=== PATIENT | female | born 1950 | race Caucasian/White ===

== ENCOUNTER → 2018-05-01 | Outpatient (CLI) | payer BC ==
--- NOTE | 2018-05-01 14:30 | RAD ---
DATE: 05/01/2018 EXAM: MAMMO TAMARA SCREENING BILATERAL HISTORY: Routine screening COMPARISON: 03/27/2016 This study was interpreted with the benefit of Computerized Aided Detection (CAD). Breast Density: HETERO The breast parenchyma is heterogenously dense, which could reduce sensitivity of mammography. Breast parenchyma level C. FINDINGS: 2-D and 3-D tomosynthesis imaging was performed in CC and MLO projections. The fibroglandular tissues in the anterior aspects of both breasts are heterogeneous in a nodular pattern. No new or enlarging breast densities are seen. No spiculated mass or architectural distortion is evident. Benign type calcifications are present. No suspicious microcalcifications have developed. IMPRESSION: Stable mammograms without evidence of malignancy. BI-RADS CATEGORY: 2 BENIGN FINDING(S) RECOMMENDED FOLLOW-UP: 12M 12 MONTH FOLLOW-UP PQRS compliance statement: Patient information was entered into a reminder system with a target due date for the next mammogram. Mammography is a sensitive method for finding small breast cancers, but it does not detect them all and is not a substitute for careful clinical examination. A negative mammogram does not negate a clinically suspicious finding and should not result in delay in biopsying a clinically suspicious abnormality. "Our facility is accredited by the [employer] Mammography Program."
== END | disposition home or self-care (01) ==
LOC: MAMMO 10:56
PROVIDERS: ATTEND Physician Assistant Medical
DX: Z12.31 Encounter for screening mammogram for malignant neoplasm of breast (principal)
CPT/HCPCS: 77063; 77067

== ENCOUNTER → 2018-05-22 | Outpatient (CLI) | payer BC, MEDICARE ==
[~2018-05-22] MED LIST: ALPR0.25 PO; ASPI81TA50 PO; ATOR10TA PO; ESCITALOPRAM OX10 MG PO; FOLI1TAB35 PO; GABA-586 PO; MELO15TA23 PO; PANT40TA3 PO
--- NOTE | 2018-05-22 17:05 | RAD ---
Examination: Lower Extremity Venous Doppler Ultrasound History: Right lower extremity swelling Comparison: None Procedure: Block scale, color flow 2D and spectal waveform analysis images are obtained with and without compression in the area of the common femoral vein, superficial femoral vein - femoral vein junction, main femoral vein (superficial femoral vein) and popliteal vein. Veins of the proximal calf are also imaged. Findings: There is normal duplex flow, color flow and compressibility of all visualized deep vein segments. No evidence of deep venous thrombus is present. There is echogenicity identified in the greater saphenous vein from the mid thigh down to the proximal calf likely superficial vein thrombosis. Impression: 1. No evidence of deep venous thrombosis. 2. Superficial vein thrombus identified in the greater saphenous vein from the mid thigh level to the proximal calf. Electronically signed by: Dinesh Wells MD (05/22/2018 5:02 PM) [place] [id number]
== END | disposition home or self-care (01) ==
LOC: RAD 15:41
PROVIDERS: ATTEND Physician Assistant Medical
DX: I82.811 Embolism and thrombosis of superficial veins of right lower extremity (principal)
CPT/HCPCS: 93971

== ENCOUNTER 2018-05-28 17:57 | Observation (INO) | payer BC, MEDICARE ==
[~2018-05-28] VITALS: Ht 157.5 cm; Wt 67.1 kg
[2018-05-28] MEDS ORDERED: IV RINGERS SOLUTION,LACTATED 1,000 ML IV SCH (18:03)
--- NOTE | 2018-05-28 18:03 | ED.ADGEN ---
Past History Past Medical History: Anxiety, Arthritis, CAD, CHF, Diabetes, Hypertension, Other Adult General Chief Complaint Chief Complaint ". I ve been having chest pain.... for at least two days... I was here on for a DVT... ".. but they did not find a deep DVT..." HPI HPI Patient is a 68 year old female who presents with above hx with complaints of chest pain, hypertension, anxiety, hypokalemia and diabetes. Patient recent reevaluated for DVT felt to have superficial phlebitis. No deep DVT found. Patient normally follows with Dr. Barney. Patient does relate the chest pain is somewhat pleuritic. Pain is sometimes severe with deep breaths or cough. Patient denies any travel, trauma or changes in meds. No hx of immunosuppression. Review of Systems Review of Systems Constitutional: Denies fever or chills [] Eyes: Denies change in visual acuity, redness, or eye pain [] HENT: Denies nasal congestion or sore throat [] Respiratory: Denies cough or shortness of breath [] Cardiovascular: No additional information not addressed in HPI [] GI: Denies abdominal pain, nausea, vomiting, bloody stools or diarrhea [] : Denies dysuria or hematuria [] Musculoskeletal: Denies back pain or joint pain [] Integument: Denies rash or skin lesions [] Neurologic: Denies headache, focal weakness or sensory changes [] Endocrine: Denies polyuria or polydipsia [] All other systems were reviewed and found to be within normal limits, except as documented in this note. Family History Family History Noncontributory Current Medications Current Medications Current Medications Medications (Trade) Dose Ordered Sig/Ryan Start Time Stop Time Status Last Admin Dose Admin Albuterol/ Ipratropium (Duoneb) 3 ml RTQID 05/28/18 20:00 05/29/18 19:59 05/28/18 20:32 3 ML Enoxaparin Sodium (Lovenox 80mg Syringe) 70 mg 1X ONCE 05/28/18 18:45 05/28/18 18:46 DC 05/28/18 19:20 70 MG Iohexol (Omnipaque 350 Mg/ml) 100 ml 1X ONCE 05/28/18 20:00 05/28/18 20:01 DC 05/28/18 19:55 100 ML Lactated Ringer's 1,000 ml @ 1,000 mls/hr Q1H 05/28/18 18:03 05/28/18 19:02 DC 05/28/18 19:17 1,000 MLS/HR Morphine Sulfate (Morphine 10mg Syringe) 10 mg 1X ONCE 05/28/18 18:30 05/28/18 18:31 DC 05/28/18 19:23 10 MG Ondansetron HCl (Zofran) 4 mg PRN Q4HRS PRN 05/28/18 19:30 05/29/18 19:29 05/28/18 23:48 4 MG Potassium Chloride (KCl Oral Soln) 40 meq 1X ONCE 05/28/18 19:45 05/28/18 19:46 DC 05/28/18 20:17 40 MEQ Allergies Allergies Allergies Coded Allergies Type Severity Reaction Last Updated Verified No Known Drug Allergies 05/28/18 No Physical Exam Physical Exam Constitutional: Anxious distress, non-toxic appearance. [] HENT: Normocephalic, atraumatic, bilateral external ears normal, oropharynx moist, no oral exudates, nose normal. [] Eyes: PERRLA, EOMI, conjunctiva normal, no discharge. [] Neck: Normal range of motion, no tenderness, supple, no stridor. [] Cardiovascular:Heart rate regular rhythm, no murmur []PMI to the left Lungs & Thorax: Bilateral breath sounds equal at apex auscultation [] Abdomen: Bowel sounds normal, soft, no tenderness, no masses, no pulsatile masses. Old surgery scars Skin: Warm, dry, no erythema, no rash. [] Back: No tenderness, no CVA tenderness. [] Extremities: No tenderness, no cyanosis, no clubbing, ROM intact, ankle edema. [ ] Neurologic: Alert and oriented X 3, normal motor function, normal sensory function, no focal deficits noted. [] Psychologic: Affect very anxious, judgement normal, mood normal. [] Current Patient Data Vital Signs Vital Signs Date Time Temp Pulse Resp B/P (MAP) Pulse Ox O2 Delivery O2 Flow Rate FiO2 05/28/18 19:23 16 99 Room Air 05/28/18 17:57 113 Lab Results Laboratory Tests Test 05/28/18 18:07 White Blood Count 9.4 x10^3/uL (4.0-11.0) Red Blood Count 4.61 x10^6/uL (3.50-5.40) Hemoglobin 14.4 g/dL (12.0-15.5) Hematocrit 42.0 % (36.0-47.0) Mean Corpuscular Volume 91 fL (79-100) Mean Corpuscular Hemoglobin 31 pg (25-35) Mean Corpuscular Hemoglobin Concent 34 g/dL (31-37) Red Cell Distribution Width 12.9 % (11.5-14.5) Platelet Count 377 x10^3/uL (140-400) Neutrophils (%) (Auto) 62 % (31-73) Lymphocytes (%) (Auto) 30 % (24-48) Monocytes (%) (Auto) 5 % (0-9) Eosinophils (%) (Auto) 2 % (0-3) Basophils (%) (Auto) 1 % (0-3) Neutrophils # (Auto) 5.8 x10^3uL (1.8-7.7) Lymphocytes # (Auto) 2.8 x10^3/uL (1.0-4.8) Monocytes # (Auto) 0.5 x10^3/uL (0.0-1.1) Eosinophils # (Auto) 0.2 x10^3/uL (0.0-0.7) Basophils # (Auto) 0.1 x10^3/uL (0.0-0.2) Prothrombin Time 10.0 SEC (9.4-11.4) Prothrombin Time INR 1.0 (0.9-1.1) PTT < 21 SEC (23-33) L D-Dimer (Nettie) 2.26 mg/L (0.00-0.50) H Sodium Level 140 mmol/L (136-145) Potassium Level 3.3 mmol/L (3.5-5.1) L Chloride Level 103 mmol/L (98-107) Carbon Dioxide Level 22 mmol/L (21-32) Anion Gap 15 (6-14) H Blood Urea Nitrogen 17 mg/dL (7-20) Creatinine 1.0 mg/dL (0.6-1.0) Estimated GFR (Cockcroft-Gault) 55.5 Glucose Level 161 mg/dL (70-99) H Calcium Level 10.2 mg/dL (8.5-10.1) H Magnesium Level 1.7 mg/dL (1.8-2.4) L Total Bilirubin 0.6 mg/dL (0.2-1.0) Direct Bilirubin 0.1 mg/dL (0.0-0.2) Aspartate Amino Transferase (AST) 18 U/L (15-37) Alanine Aminotransferase (ALT) 21 U/L (14-59) Alkaline Phosphatase 71 U/L (46-116) Creatine Kinase 99 U/L (26-192) Troponin I Quantitative < 0.017 ng/mL (0-0.055) AS-Vam-U-Type Natriuretic Peptide 15 pg/mL (0-124) Total Protein 7.7 g/dL (6.4-8.2) Albumin 3.7 g/dL (3.4-5.0) Lipase 235 U/L (73-393) EKG EKG My interpretation EKG shows a sinus rhythm at 79 bpm. No acute morphology. There is some baseline artifact[] Radiology/Procedures Radiology/Procedures My interpretation of chest x-ray shows no large pleural or pulmonary consolidations. Some basilar atelectasis. No free air under the diaphragm. Degenerative joint changes. Course & Med Decision Making Course & Med Decision Making Pertinent Labs and Imaging studies reviewed. (See chart for details) Heart score= [address] Chau- [] Final Impression Final Impression 1. Chest Pain[] 2. HTN 3. Anxiety 4. Hypokalemia 3.3 5. DM 161 Dragon Disclaimer Dragon Disclaimer This electronic medical record was generated, in whole or in part, using a voice recognition dictation system. Dragon Disclaimer This chart was dictated in whole or in part using Voice Recognition software in a busy, high-work load, and often noisy Emergency Department environment. It may contain unintended and wholly unrecognized errors or omissions. Dragon Disclaimer This chart was dictated in whole or in part using Voice Recognition software in a busy, high-work load, and often noisy Emergency Department environment. It may contain unintended and wholly unrecognized errors or omissions. Discharge Summary Visit Information Final Diagnosis Problems Medical Problems: (1) Chest pain Status: Acute Brief Hospital Course Allergies Allergies Coded Allergies Type Severity Reaction Last Updated Verified No Known Drug Allergies 05/28/18 No Vital Signs Vital Signs Date Time Temp Pulse Resp B/P (MAP) Pulse Ox O2 Delivery O2 Flow Rate FiO2 05/28/18 19:23 16 99 Room Air 05/28/18 17:57 113 Lab Results Laboratory Tests Test 05/28/18 18:07 White Blood Count 9.4 x10^3/uL (4.0-11.0) Red Blood Count 4.61 x10^6/uL (3.50-5.40) Hemoglobin 14.4 g/dL (12.0-15.5) Hematocrit 42.0 % (36.0-47.0) Mean Corpuscular Volume 91 fL (79-100) Mean Corpuscular Hemoglobin 31 pg (25-35) Mean Corpuscular Hemoglobin Concent 34 g/dL (31-37) Red Cell Distribution Width 12.9 % (11.5-14.5) Platelet Count 377 x10^3/uL (140-400) Neutrophils (%) (Auto) 62 % (31-73) Lymphocytes (%) (Auto) 30 % (24-48) Monocytes (%) (Auto) 5 % (0-9) Eosinophils (%) (Auto) 2 % (0-3) Basophils (%) (Auto) 1 % (0-3) Neutrophils # (Auto) 5.8 x10^3uL (1.8-7.7) Lymphocytes # (Auto) 2.8 x10^3/uL (1.0-4.8) Monocytes # (Auto) 0.5 x10^3/uL (0.0-1.1) Eosinophils # (Auto) 0.2 x10^3/uL (0.0-0.7) Basophils # (Auto) 0.1 x10^3/uL (0.0-0.2) Prothrombin Time 10.0 SEC (9.4-11.4) Prothromb Time International Ratio 1.0 (0.9-1.1) Activated Partial Thromboplast Time < 21 SEC (23-33) D-Dimer (Nettie) 2.26 mg/L (0.00-0.50) Sodium Level 140 mmol/L (136-145) Potassium Level 3.3 mmol/L (3.5-5.1) Chloride Level 103 mmol/L (98-107) Carbon Dioxide Level 22 mmol/L (21-32) Anion Gap 15 (6-14) Blood Urea Nitrogen 17 mg/dL (7-20) Creatinine 1.0 mg/dL (0.6-1.0) Estimated GFR (Cockcroft-Gault) 55.5 Glucose Level 161 mg/dL (70-99) Calcium Level 10.2 mg/dL (8.5-10.1) Magnesium Level 1.7 mg/dL (1.8-2.4) Total Bilirubin 0.6 mg/dL (0.2-1.0) Direct Bilirubin 0.1 mg/dL (0.0-0.2) Aspartate Amino Transf (AST/SGOT) 18 U/L (15-37) Alanine Aminotransferase (ALT/SGPT) 21 U/L (14-59) Alkaline Phosphatase 71 U/L (46-116) Creatine Kinase 99 U/L (26-192) Troponin I Quantitative < 0.017 ng/mL (0-0.055) AD-Vsc-T-Type Natriuretic Peptide 15 pg/mL (0-124) Total Protein 7.7 g/dL (6.4-8.2) Albumin 3.7 g/dL (3.4-5.0) Lipase 235 U/L (73-393) Brief Hospital Course Ms. Wong is a 68 old female who presented with CP. Admit to Dr. Chau Discharge Information Condition at Discharge: Improved, Stable Dischare Medications Current Medications Lactated Ringer's 1,000 ml @ 1,000 mls/hr Q1H IV Last administered on at 19:17; Admin Dose 1,000 MLS/HR; Start 05/28/18 at 18:03; Stop 05/28/18 at 19:02; Status DC Enoxaparin Sodium (Lovenox 80mg Syringe) 70 mg 1X ONCE SQ Last administered on 05/28/18at 19:20; Admin Dose 70 MG; Start 05/28/18 at 18:45; Stop 05/28/18 at 18:46; Status DC Morphine Sulfate (Morphine 10mg Syringe) 10 mg 1X ONCE SQ Last administered on 05/28/18at 19:23; Admin Dose 10 MG; Start 05/28/18 at 18:30; Stop 05/28/18 at 18:31; Status DC Iohexol (Omnipaque 350 Mg/ml) 100 ml 1X ONCE IV Last administered on at 19:55; Admin Dose 100 ML; Start 05/28/18 at 20:00; Stop 05/28/18 at 20:01; Status DC Ondansetron HCl (Zofran) 4 mg PRN Q4HRS PRN IV NAUSEA/VOMITING Last administered on 05/28/18at 23:48; Admin Dose 4 MG; Start 05/28/18 at 19:30; Stop 05/29/18 at 19:29 Albuterol/ Ipratropium (Duoneb) 3 ml RTQID NEB Last administered on 05/28/18at 20:32; Admin Dose 3 ML; Start 05/28/18 at 20:00; Stop 05/29/18 at 19:59 Potassium Chloride (KCl Oral Soln) 40 meq 1X ONCE PO Last administered on 05/28at 20:17; Admin Dose 40 MEQ; Start 05/28/18 at 19:45; Stop 05/28/18 at 19:46 ; Status DC Active Scripts Active Discharge Summary Visit Information Final Diagnosis Problems Medical Problems: (1) Chest pain Status: Acute Brief Hospital Course Allergies Allergies Coded Allergies Type Severity Reaction Last Updated Verified No Known Drug Allergies 05/28/18 No Vital Signs Vital Signs Date Time Temp Pulse Resp B/P (MAP) Pulse Ox O2 Delivery O2 Flow Rate FiO2 05/28/18 19:23 16 99 Room Air 05/28/18 17:57 113 Lab Results Laboratory Tests Test 05/28/18 18:07 White Blood Count 9.4 x10^3/uL (4.0-11.0) Red Blood Count 4.61 x10^6/uL (3.50-5.40) Hemoglobin 14.4 g/dL (12.0-15.5) Hematocrit 42.0 % (36.0-47.0) Mean Corpuscular Volume 91 fL (79-100) Mean Corpuscular Hemoglobin 31 pg (25-35) Mean Corpuscular Hemoglobin Concent 34 g/dL (31-37) Red Cell Distribution Width 12.9 % (11.5-14.5) Platelet Count 377 x10^3/uL (140-400) Neutrophils (%) (Auto) 62 % (31-73) Lymphocytes (%) (Auto) 30 % (24-48) Monocytes (%) (Auto) 5 % (0-9) Eosinophils (%) (Auto) 2 % (0-3) Basophils (%) (Auto) 1 % (0-3) Neutrophils # (Auto) 5.8 x10^3uL (1.8-7.7) Lymphocytes # (Auto) 2.8 x10^3/uL (1.0-4.8) Monocytes # (Auto) 0.5 x10^3/uL (0.0-1.1) Eosinophils # (Auto) 0.2 x10^3/uL (0.0-0.7) Basophils # (Auto) 0.1 x10^3/uL (0.0-0.2) Prothrombin Time 10.0 SEC (9.4-11.4) Prothromb Time International Ratio 1.0 (0.9-1.1) Activated Partial Thromboplast Time < 21 SEC (23-33) D-Dimer (Nettie) 2.26 mg/L (0.00-0.50) Sodium Level 140 mmol/L (136-145) Potassium Level 3.3 mmol/L (3.5-5.1) Chloride Level 103 mmol/L (98-107) Carbon Dioxide Level 22 mmol/L (21-32) Anion Gap 15 (6-14) Blood Urea Nitrogen 17 mg/dL (7-20) Creatinine 1.0 mg/dL (0.6-1.0) Estimated GFR (Cockcroft-Gault) 55.5 Glucose Level 161 mg/dL (70-99) Calcium Level 10.2 mg/dL (8.5-10.1) Magnesium Level 1.7 mg/dL (1.8-2.4) Total Bilirubin 0.6 mg/dL (0.2-1.0) Direct Bilirubin 0.1 mg/dL (0.0-0.2) Aspartate Amino Transf (AST/SGOT) 18 U/L (15-37) Alanine Aminotransferase (ALT/SGPT) 21 U/L (14-59) Alkaline Phosphatase 71 U/L (46-116) Creatine Kinase 99 U/L (26-192) Troponin I Quantitative < 0.017 ng/mL (0-0.055) NM-Siv-Z-Type Natriuretic Peptide 15 pg/mL (0-124) Total Protein 7.7 g/dL (6.4-8.2) Albumin 3.7 g/dL (3.4-5.0) Lipase 235 U/L (73-393) Brief Hospital Course Ms. Wong is a 68 old [sex] who presented with [ ] Discharge Information Dischare Medications Current Medications Lactated Ringer's 1,000 ml @ 1,000 mls/hr Q1H IV Last administered on at 19:17; Admin Dose 1,000 MLS/HR; Start 05/28/18 at 18:03; Stop 05/28/18 at 19:02; Status DC Enoxaparin Sodium (Lovenox 80mg Syringe) 70 mg 1X ONCE SQ Last administered on 05/28/18at 19:20; Admin Dose 70 MG; Start 05/28/18 at 18:45; Stop 05/28/18 at 18:46; Status DC Morphine Sulfate (Morphine 10mg Syringe) 10 mg 1X ONCE SQ Last administered on 05/28/18at 19:23; Admin Dose 10 MG; Start 05/28/18 at 18:30; Stop 05/28/18 at 18:31; Status DC Iohexol (Omnipaque 350 Mg/ml) 100 ml 1X ONCE IV Last administered on at 19:55; Admin Dose 100 ML; Start 05/28/18 at 20:00; Stop 05/28/18 at 20:01; Status DC Ondansetron HCl (Zofran) 4 mg PRN Q4HRS PRN IV NAUSEA/VOMITING Last administered on 05/28/18at 23:48; Admin Dose 4 MG; Start 05/28/18 at 19:30; Stop 05/29/18 at 19:29 Albuterol/ Ipratropium (Duoneb) 3 ml RTQID NEB Last administered on 05/28/18at 20:32; Admin Dose 3 ML; Start 05/28/18 at 20:00; Stop 05/29/18 at 19:59 Potassium Chloride (KCl Oral Soln) 40 meq 1X ONCE PO Last administered on 05/28at 20:17; Admin Dose 40 MEQ; Start 05/28/18 at 19:45; Stop 05/28/18 at 19:46 ; Status DC Active Scripts Active JAIRON BLANCO MD May 28, 2018 18:03
[2018-05-28 18:24] LABS: BASO # 0.1 x10^3/uL (0.0-0.2); BASO % 1 % (0-3); EOS # 0.2 x10^3/uL (0.0-0.7); EOS % 2 % (0-3); HEMOGLOBIN 14.4 g/dL (12.0-15.5); LYMPH # 2.8 x10^3/uL (1.0-4.8); LYMPH % 30 % (24-48); MEAN CORPUSCULAR HEMOGLOBIN 31 pg (25-35); MEAN CORPUSCULAR HGB CONC 34 g/dL (31-37); MEAN CORPUSCULAR VOLUME 91 fL (79-100); MONO # 0.5 x10^3/uL (0.0-1.1); MONO % 5 % (0-9); NEUT # 5.8 x10^3uL (1.8-7.7); NEUT % 62 % (31-73); PLATELET COUNT 377 x10^3/uL (140-400); RED BLOOD COUNT 4.61 x10^6/uL (3.50-5.40); RED CELL DISTRIBUTION WIDTH 12.9 % (11.5-14.5); WHITE BLOOD COUNT 9.4 x10^3/uL (4.0-11.0)
[2018-05-28] MEDS ORDERED: MORPHINE SULFATE 10 MG/ML SYRINGE. SQ ONE (18:30)
[2018-05-28 18:42] LABS: ALBUMIN 3.7 g/dL (3.4-5.0); CALCIUM 10.2 mg/dL (8.5-10.1); DIRECT BILIRUBIN 0.1 mg/dL (0.0-0.2); GFR 55.5; MAGNESIUM 1.7 mg/dL (1.8-2.4); POTASSIUM 3.3 mmol/L (3.5-5.1); TOTAL BILIRUBIN 0.6 mg/dL (0.2-1.0); TOTAL PROTEIN 7.7 g/dL (6.4-8.2)
[2018-05-28] MEDS ORDERED: ENOXAPARIN ** NOTE DOSE ** SYRINGE SQ ONE (18:45)
[2018-05-28] MEDS ORDERED: POTASSIUM CHLORIDE 20 MEQ/15 ML ORAL LIQUID. PO ONE (19:45)
[2018-05-28] MEDS ORDERED: IOHEXOL 350 MG/ML 100 ML VIAL. IV ONE (20:00)
[2018-05-28] MEDS: ONDANSETRON PF 4 MG/2 ML VIAL. IV PRN ×2 (20:18→23:48)
[2018-05-28] MEDS: IPRATRPIUM/ALBUTEROL 0.5/2.5MG 3 ML NEBU. NEB SCH (20:32)
--- NOTE | 2018-05-28 21:20 | RAD ---
PQRS Compliance Statement: One or more of the following individualized dose reduction techniques were utilized for this examination: 1. Automated exposure control 2. Adjustment of the mA and/or kV according to patient size 3. Use of iterative reconstruction technique CT angiography chest with contrast 05/28/2018 7:57 PM INDICATION: Chest pain COMPARISON: None available TECHNIQUE: Axial CT images of the chest were obtained after the intravenous administration of nonionic contrast. Coronal and sagittal reformats are provided. Maximum intensity projection images of the thoracic vasculature are provided. FINDINGS: The thyroid gland is normal in appearance. There are no pathologically enlarged axillary, mediastinal or hilar lymph nodes. The heart size is within normal limits. No significant pericardial effusion. Thoracic aorta is normal in course and caliber. There is adequate opacification of the pulmonary arterial system. There there are no filling defects within the pulmonary arterial system to suggest acute or chronic pulmonary embolus. There are no suspicious solid noncalcified pulmonary nodules. There are no pulmonary infiltrates. There are no pleural effusions. No pulmonary vascular congestion or pneumothorax. There is a 3 mm nonobstructing calculus in the superior pole the left kidney. Calcified gallstones are present. No suspicious osseous lesions are visualized. IMPRESSION: 1. There is no evidence for acute or chronic pulmonary embolism. 2. 3 mm nonobstructing calculus in the superior pole the left kidney. No hydronephrosis. 3. Cholelithiasis. Electronically signed by: Angela Hernandez MD (05/28/2018 9:17 PM) [facility]
--- NOTE | 2018-05-28 21:50 | RAD ---
Chest radiograph 05/28/2018 6:28 PM INDICATION: Chest pain, shortness of breath COMPARISON: Chest radiograph January 21, 2013 TECHNIQUE: Frontal and lateral views of the chest are provided. FINDINGS: The cardiomediastinal silhouette is within normal limits. There are no pleural effusions. There is no pulmonary vascular congestion. There is no pneumothorax. The lungs are clear. No significant osseous abnormality is identified. Mild degenerative changes of the thoracic spine. IMPRESSION: No acute cardiopulmonary process. Electronically signed by: Angela Hernandez MD (05/28/2018 9:48 PM) [facility]
[2018-05-28 22:15] VITALS: BP 111/75
[2018-05-29] MEDS ORDERED: ATOR10TA PO (00:46)
[2018-05-29] MEDS ORDERED: MELO15TA23 PO (00:46)
[2018-05-29] MEDS ORDERED: ASPI81TA50 PO (00:46)
[2018-05-29] MEDS ORDERED: FOLI1TAB35 PO (00:46)
[2018-05-29] MEDS ORDERED: GABA-586 PO (00:46)
[2018-05-29 01:11] LABS: BARBITURATES NEG (NEG); BENZODIAZEPINES NEG (NEG); CANNABINOIDS NEG (NEG); COCAINE NEG (NEG); METHADONE NEG (NEG); OPIATES POS (NEG); PHENCYCLIDINE NEG (NEG)
[2018-05-29 01:30] LABS: BILIRUBIN,URINE NEG (NEG); CLARITY,URINE CLEAR; COLOR,URINE YELLOW; GLUCOSE,URINE NEG (NEG); NITRITE,URINE NEG (NEG); UROBILINOGEN,URINE 0.2 mg/dL (0.2 mg/dL)
[2018-05-29 01:31] LABS: BACTERIA,URINE 0 /HPF (0-FEW); RBC,URINE 0 /HPF (0-2); SQUAMOUS EPITHELIAL CELL,UR OCC /LPF; WBC,URINE RARE /HPF (0-4)
[2018-05-29 01:37] LABS: AMPHETAMINE/METHAMPHETAMINE NEG (NEG)
[2018-05-29 04:36] VITALS: BP 99/64
[2018-05-29] MEDS: IPRATRPIUM/ALBUTEROL 0.5/2.5MG 3 ML NEBU. NEB SCH ×2 (05:27→09:45)
[2018-05-29 06:29] VITALS: BP 114/69
[2018-05-29 06:38] LABS: BASO % 0 % (0-3); EOS % 0 % (0-3); HEMATOCRIT 39.9 % (36.0-47.0); HEMOGLOBIN 13.3 g/dL (12.0-15.5); LYMPH # 1.3 x10^3/uL (1.0-4.8); LYMPH % 15 % (24-48); MEAN CORPUSCULAR HEMOGLOBIN 31 pg (25-35); MEAN CORPUSCULAR HGB CONC 34 g/dL (31-37); MEAN CORPUSCULAR VOLUME 92 fL (79-100); MONO # 0.6 x10^3/uL (0.0-1.1); MONO % 6 % (0-9); NEUT # 7.3 x10^3uL (1.8-7.7); NEUT % 79 % (31-73); PLATELET COUNT 361 x10^3/uL (140-400); RED BLOOD COUNT 4.36 x10^6/uL (3.50-5.40); RED CELL DISTRIBUTION WIDTH 12.9 % (11.5-14.5); WHITE BLOOD COUNT 9.3 x10^3/uL (4.0-11.0)
[2018-05-29 06:50] LABS: CALCIUM 8.9 mg/dL (8.5-10.1); CREATININE 0.8 mg/dL (0.6-1.0); GFR 71.8
[2018-05-29] MEDS ORDERED: ASPIRIN ENTERIC COATED 81 MG TABLET.DR. PO SCH (08:00)
[2018-05-29] MEDS ORDERED: PANTOPRAZOLE 40 MG TABLET. PO SCH (08:00)
[2018-05-29] MEDS ORDERED: MELOXICAM 15 MG TABLET. PO SCH (09:00)
[2018-05-29] MEDS ORDERED: MULTIVITAMIN with MINERAL TABLET. PO SCH (09:00)
[2018-05-29] MEDS: GABAPENTIN 300 MG CAPSULE. PO SCH ×3 (09:17→14:42)
--- NOTE | 2018-05-29 10:16 | PDOC2 ---
CONSULT Date of Admission DATE: 05/29/18 TIME: 10:16 Reason for Consult: cp Problem List Problems Medical Problems: (1) Chest pain Status: Acute History of Present Illness Ms Wong is a 68 year old female who was recently diagnosed with phlebitis and a lower extremity superficial clot. She reports yesterday she began to have sharp pains beneath her left breast that would last only a second or two and resolve spontaneously. She reports the pain was usually exertional and she had been having dyspnea on exertion for about 3 months. She reports episodes of heart racing. Yesterday she reports after having pain she became frightened and came to ED . She reports shortness of breath, lightheadedness and her hands were numb and tingling. She says she has family history of heart problems and was afraid she might . She is currently resting quietly but appears very nervous when talking. She denies current symptoms. She reports varicose veins and needing to see a vein specialist. She complains of neuropathy in both feet. She complains of recent low back discomfort. Past Medical History She reports history of hypertension and hyperlipidemia, anxiety and neuropathy. She denies any personal history of CAD, CHF or diabetes but does state many family members have all three. She denies any significant history of lung disese. she reports GERD but denies any ulcers. She denies any kidney problems , She denies any urinary tract disorders, She reports history of arthritis. She denies renal or hepatic disease. She does report history of basal cell carcinoma with removal on her ear. She reports history of anxiety and depression. She has history of UTIs and bladder prolapse. Past Surgical History basal cell carcinoma removal Family History cad, CHF, diabetes, hypertension, cancer Social History non smoker, no significant ETOH, no illicit drugs Current Medications Current Medications Lactated Ringer's 1,000 ml @ 1,000 mls/hr Q1H IV Last administered on at 19:17; Start 05/28/18 at 18:03; Stop 05/28/18 at 19:02; Status DC Enoxaparin Sodium (Lovenox 80mg Syringe) 70 mg 1X ONCE SQ Last administered on 05/28/18at 19:20; Start 05/28/18 at 18:45; Stop 05/28/18 at 18:46; Status DC Morphine Sulfate (Morphine 10mg Syringe) 10 mg 1X ONCE SQ Last administered on 05/28/18 19:23; Start 05/28/18 at 18:30; Stop 05/28/18 at 18:31; Status DC Iohexol (Omnipaque 350 Mg/ml) 100 ml 1X ONCE IV Last administered on at 19:55; Start 05/28/18 at 20:00; Stop 05/28/18 at 20:01; Status DC Ondansetron HCl (Zofran) 4 mg PRN Q4HRS PRN IV NAUSEA/VOMITING Last administered on 05/28/18 23:48; Start 05/28/18 at 19:30; Stop 05/29/18 at 19:29 Albuterol/ Ipratropium (Duoneb) 3 ml RTQID NEB Last administered on 05/29/18 05:27; Start 05/28/18 at 20:00; Stop 05/29/18 at 19:59 Potassium Chloride (KCl Oral Soln) 40 meq 1X ONCE PO Last administered on 05/28 20:17; Start 05/28/18 at 19:45; Stop 05/28/18 at 19:46; Status DC Lorazepam (Ativan) 2 mg 1X ONCE IV Last administered on 05/28/18 21:26; Start 05/28/18 at 21:30; Stop 05/28/18 at 21:31; Status DC Gabapentin (Neurontin) 300 mg TID PO ; Start 05/29/18 at 09:00 Aspirin (Aspirin Enteric Coated) 81 mg DAILYWBKFT PO Last administered on at 09:17; Start 05/29/18 at 08:00 Atorvastatin Calcium (Lipitor) 10 mg QHS PO ; Start 05/29/18 at 21:00 Multivitamins/ Calcium (Thera-M Plus) 1 tab DAILY PO Last administered on at 09:18; Start 05/29/18 at 09:00 Meloxicam (Mobic) 15 mg DAILY PO ; Start 05/29/18 at 09:00 Pantoprazole Sodium (Protonix) 40 mg DAILYAC PO Last administered on 05/29/18at 09:17; Start 05/29/18 at 08:00 Active Scripts Active Reported Aspir-Low (Aspirin) 81 Mg Tablet.dr 81 Mg PO DAILY One Daily For Women Tablet (Folic Acid/Mv,Fe,Other Min) 1 Each Tablet 1 Each PO DAILY Gabapentin (Gabapentin) 300 Mg Capsule 300 Mg PO TID Meloxicam 15 Mg Tablet 15 Mg PO DAILY Lipitor (Atorvastatin Calcium) 10 Mg Tablet 10 Mg PO QHS Allergies: Coded Allergies: No Known Drug Allergies (Unverified , 05/28/18) Review of System as per HPI General: Alert, Oriented X3, Cooperative, Other (very anxious) HEENT: Atraumatic Lungs: Clear to auscultation Heart: Normal S1, Normal S2, Other (no significant murmurs, no gallops, clicks or rubs) Abdomen: Normal bowel sounds, No tenderness Extremities: No cyanosis, No edema, Normal pulses Neuro: Normal speech, Strength at 5/5 X4 ext Psych/Mental Status: Other (very anxious ) VITALS Vital Signs Date Time Temp Pulse Resp B/P (MAP) Pulse Ox O2 Delivery O2 Flow Rate FiO2 05/29/18 06:29 99 114/69 (84) 05/29/18 05:29 98 Room Air 05/29/18 04:36 98.1 18 Labs Laboratory Tests Test 05/28/18 18:07 05/28/18 22:20 05/29/18 00:01 05/29/18 06:12 White Blood Count 9.4 x10^3/uL (4.0-11.0) 9.3 x10^3/uL (4.0-11.0) Red Blood Count 4.61 x10^6/uL (3.50-5.40) 4.36 x10^6/uL (3.50-5.40) Hemoglobin 14.4 g/dL (12.0-15.5) 13.3 g/dL (12.0-15.5) Hematocrit 42.0 % (36.0-47.0) 39.9 % (36.0-47.0) Mean Corpuscular Volume 91 fL (79-100) 92 fL (79-100) Mean Corpuscular Hemoglobin 31 pg (25-35) 31 pg (25-35) Mean Corpuscular Hemoglobin Concent 34 g/dL (31-37) 34 g/dL (31-37) Red Cell Distribution Width 12.9 % (11.5-14.5) 12.9 % (11.5-14.5) Platelet Count 377 x10^3/uL (140-400) 361 x10^3/uL (140-400) Neutrophils (%) (Auto) 62 % (31-73) 79 % (31-73) Lymphocytes (%) (Auto) 30 % (24-48) 15 % (24-48) Monocytes (%) (Auto) 5 % (0-9) 6 % (0-9) Eosinophils (%) (Auto) 2 % (0-3) 0 % (0-3) Basophils (%) (Auto) 1 % (0-3) 0 % (0-3) Neutrophils # (Auto) 5.8 x10^3uL (1.8-7.7) 7.3 x10^3uL (1.8-7.7) Lymphocytes # (Auto) 2.8 x10^3/uL (1.0-4.8) 1.3 x10^3/uL (1.0-4.8) Monocytes # (Auto) 0.5 x10^3/uL (0.0-1.1) 0.6 x10^3/uL (0.0-1.1) Eosinophils # (Auto) 0.2 x10^3/uL (0.0-0.7) 0.0 x10^3/uL (0.0-0.7) Basophils # (Auto) 0.1 x10^3/uL (0.0-0.2) 0.0 x10^3/uL (0.0-0.2) Prothrombin Time 10.0 SEC (9.4-11.4) Prothromb Time International Ratio 1.0 (0.9-1.1) Activated Partial Thromboplast Time < 21 SEC (23-33) D-Dimer (Nettie) 2.26 mg/L (0.00-0.50) Sodium Level 140 mmol/L (136-145) 145 mmol/L (136-145) Potassium Level 3.3 mmol/L (3.5-5.1) 4.0 mmol/L (3.5-5.1) Chloride Level 103 mmol/L (98-107) 108 mmol/L (98-107) Carbon Dioxide Level 22 mmol/L (21-32) 25 mmol/L (21-32) Anion Gap 15 (6-14) 12 (6-14) Blood Urea Nitrogen 17 mg/dL (7-20) 12 mg/dL (7-20) Creatinine 1.0 mg/dL (0.6-1.0) 0.8 mg/dL (0.6-1.0) Estimated GFR (Cockcroft-Gault) 55.5 71.8 Glucose Level 161 mg/dL (70-99) 122 mg/dL (70-99) Calcium Level 10.2 mg/dL (8.5-10.1) 8.9 mg/dL (8.5-10.1) Magnesium Level 1.7 mg/dL (1.8-2.4) Total Bilirubin 0.6 mg/dL (0.2-1.0) Direct Bilirubin 0.1 mg/dL (0.0-0.2) Aspartate Amino Transf (AST/SGOT) 18 U/L (15-37) Alanine Aminotransferase (ALT/SGPT) 21 U/L (14-59) Alkaline Phosphatase 71 U/L (46-116) Creatine Kinase 99 U/L (26-192) Troponin I Quantitative < 0.017 ng/mL (0-0.055) < 0.017 ng/mL (0-0.055) < 0.017 ng/mL (0-0.055) IY-Psh-V-Type Natriuretic Peptide 15 pg/mL (0-124) Total Protein 7.7 g/dL (6.4-8.2) Albumin 3.7 g/dL (3.4-5.0) Lipase 235 U/L (73-393) Urine Collection Type Unknown Urine Color Yellow Urine Clarity Clear Urine pH 7.0 Urine Specific [place] 1.010 Urine Protein Neg (NEG-TRACE) Urine Glucose (UA) Neg mg/dL (NEG) Urine Ketones (Stick) 40 mg/dL (NEG) Urine Blood Neg (NEG) Urine Nitrite Neg (NEG) Urine Bilirubin Neg (NEG) Urine Urobilinogen Dipstick 0.2 mg/dL (0.2 mg/dL) Urine Leukocyte Esterase Neg (NEG) Urine RBC 0 /HPF (0-2) Urine WBC Rare /HPF (0-4) Urine Squamous Epithelial Cells Occ /LPF Urine Bacteria 0 /HPF (0-FEW) Urine Opiates Screen Pos (NEG) Urine Methadone Screen Neg (NEG) Urine Barbiturates Neg (NEG) Urine Phencyclidine Screen Neg (NEG) Urine Amphetamine/Methamphetamine Neg (NEG) Urine Benzodiazepines Screen Neg (NEG) Urine Cocaine Screen Neg (NEG) Urine Cannabinoids Screen Neg (NEG) Urine Ethyl Alcohol Neg (NEG) Images CXR - IMPRESSION: No acute cardiopulmonary process. CTA - IMPRESSION: 1. There is no evidence for acute or chronic pulmonary embolism. 2. 3 mm nonobstructing calculus in the superior pole the left kidney. No hydronephrosis. 3. Cholelithiasis. Assessment/Plan 1. Chest pain atypical- ID ruled out. no acute abn on ekg. Check lipids, start aspirin, No beta jay due to borderline hypotension. Check echo and if no acute abn could go home from CV stand point. Consider outpatient MPI. 2. dyspnea - no signs of heart failure 3. hypertension - well controlled. Continue home meds. 4. hyperlipidemia - check lipids 5. superficial lower ext clot - per PCP. 6. anxiety - per pcp AZAEL SORIA APRN May 29, 2018 10:16
[2018-05-29 10:36] VITALS: BP 107/72
[2018-05-29] MEDS ORDERED: IPRATRPIUM/ALBUTEROL 0.5/2.5MG 3 ML NEBU. NEB PRN (13:45)
[2018-05-29 13:49] LABS: THYROID STIM HORMONE (TSH) 3.949 uIU/mL (0.358-3.740)
--- NOTE | 2018-05-29 14:16 | CARD ---
MR#: [id number] Date of Study: 05/29/2018 Ordering Physician: AZAEL SORIA, Referring Physician: BOONE ONOFRE, Tech: Erin Nye APPROVED REPORT EXAM: Two-dimensional and M-mode echocardiogram with Doppler and color Doppler. Other Information Quality : Average INDICATION CAD Chest Pain RISK FACTORS Hypertension Hyperlipidemia 2D DIMENSIONS RVDd2.0 (2.9-3.5cm)Left Atrium(2D)3.6 (1.6-4.0cm) IVSd0.9 (0.7-1.1cm)Aortic Root(2D)2.3 (2.0-3.7cm) LVDd4.0 (3.9-5.9cm)LVOT Diameter2.0 (1.8-2.4cm) PWd0.8 (0.7-1.1cm)LVDs2.5 (2.5-4.0cm) FS (%) 38.9 %SV49.8 ml LVEF(%)69.8 (>50%) Aortic Valve AoV Peak Henrry.183.4cm/sAoV VTI33.4cm AO Peak GR.13.5mmHgLVOT Peak Henrry.191.1cm/s LVOT VTI 36.13cmAO Mean GR.7mmHg CHARLY (VMAX)3.65yn2ATB (VTI)3.54cm2 Mitral Valve MV E Djisbhny04.3cm/sMV DECEL RSWT310ls MV A Jdgbvqvy85.0cm/sE/A Ratio1.1 Pulmonary Valve PV Peak Pdtoqhqj921.5cm/sPV Peak Grad.6mmHg Tricuspid Valve TR P. Onmphlqf290kx/sRAP QXOIFOWB9eeRy TR Peak Gr.39mmHg Pulmonary Vein S1 Zzvearmy49.4cm/sD2 Uzkfpwbd97.2cm/s LEFT VENTRICLE The left ventricle is normal size. There is normal left ventricular wall thickness. The left ventricu lar systolic function is normal and the ejection fraction is within normal range. The Ejection Fracti on is >55%. There is normal LV segmental wall motion. Transmitral Doppler flow pattern is Grade II-ps eudonormal filling dynamics. RIGHT VENTRICLE The right ventricle is normal size. There is normal right ventricular wall thickness. The right ventr icular systolic function is normal. ATRIA The left atrium size is normal. The right atrium size is normal. The interatrial septum is intact wit h no evidence for an atrial septal defect or patent foramen ovale as noted on 2-D or Doppler imaging. AORTIC VALVE The aortic valve is normal in structure and function. Doppler and Color Flow revealed no significant aortic regurgitation. There is no significant aortic valvular stenosis. MITRAL VALVE The mitral valve is normal in structure and function. There is no evidence of mitral valve prolapse. There is no mitral valve stenosis. Doppler and Color-flow revealed trace mitral regurgitation. TRICUSPID VALVE The tricuspid valve is not well visualized. Doppler and Color Flow revealed trace tricuspid regurgita tion. There is no tricuspid valve stenosis. PULMONIC VALVE The pulmonary valve is normal in structure and function. Doppler and Color Flow revealed no pulmonic valvular regurgitation. GREAT VESSELS The aortic root is normal in size. The IVC is normal in size and collapses >50% with inspiration. PERICARDIAL EFFUSION There is no pleural effusion. There is no evidence of significant pericardial effusion. Critical Notification Critical Value: No <Conclusion> The left ventricular systolic function is normal and the ejection fraction is within normal range. Th e Ejection Fraction is >55%. There is normal LV segmental wall motion. Signed by : Everardo Angeles, Electronically Approved : 05/29/2018 14:15:30
[2018-05-29 16:04] VITALS: BP 106/71
[2018-05-29] MEDS ORDERED: ALPR0.25 PO (16:42)
[2018-05-29] MEDS ORDERED: ESCITALOPRAM OX10 MG PO (16:42)
[2018-05-29] MEDS ORDERED: PANT40TA3 PO (16:42)
--- NOTE | 2018-05-29 17:30 | HP ---
ADMIT DATE: 05/28/2018 HISTORY OF PRESENT ILLNESS: The patient is a 68-year-old female patient who was recently diagnosed with a superficial thrombophlebitis of her right lower extremity, who started complaining of left-sided sharp chest pain, lasting only for a few seconds and resolved spontaneously. She reports that the pain was on exertion. She was having shortness of breath on exertion for about 3 months, episodes of her heart racing, she also has had pain. She said after having pain she became panicked and came to the Emergency Room as her dad at age of 64 because of heart attack. She has also some tingling and numbness in her hands and lightheadedness. She admits that she is extremely anxious, nervous and whenever has any symptoms, she looks at [employer] things and that aggravates her anxiety. She was evaluated in the Emergency Room and she has had an EKG, which showed that she was in sinus rhythm with a heart rate of 79 beats per minute, no acute ST segment elevation. Her chest x-ray was unremarkable and showed that the cardiomediastinal silhouette is within normal limits. Her lab work showed that her first set of cardiac enzyme was less than 0.017 and D-dimer was high. Her D-dimer was 2.26. She underwent CT angio of the chest, which basically showed no evidence of acute or chronic pulmonary embolism. There is a small 3 mm nonobstructing calculus in the superior pole of the left kidney. No hydronephrosis and also cholelithiasis. The patient was admitted, to do 2 more sets of cardiac enzyme and had to consult the Cardiology team. PAST MEDICAL HISTORY: Significant for varicose veins, peripheral neuropathy, gastroesophageal reflux disease. Recently superficial thrombophlebitis of her right lower extremity. PAST SURGICAL HISTORY: Significant for basal cell cancer resected behind her left ear. Five years ago she has also tubal ligation. ALLERGIES: She has no known drug allergies. MEDICATIONS: She is currently on following medications: She is on atorvastatin 10 mg at bedtime, aspirin 81 mg once a day, Meloxicam ____ once a day, gabapentin 300 mg 3 times a day and folic acid 1 tablet once a day. FAMILY HISTORY: Noncontributory. Her father at age of 64 because of myocardial infarction. Mother at the age of 91 because of CVA. SOCIAL HISTORY: She is , has a daughter and a son. She never smoked. Drinks alcohol once in a blue atkins. 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 REVIEW OF SYSTEMS: As per history of present illness. PHYSICAL EXAMINATION: GENERAL: On arrival to the Emergency Room, she looked well and was clearly extremely anxious, slightly tachypneic, tachycardic, but there was no pallor, jaundice, cyanosis or thyromegaly. No jugular venous distention. No limb edema. VITAL SIGNS: Her heart rate was 113, blood pressure was 122/75, temperature was 98.1, respiratory rate was 24, and oxygen saturation was 99% on room air. HEAD, EYES, EARS, NOSE AND THROAT: Showed normocephalic, atraumatic. NECK: Supple. HEART: Showed normal first and second heart sounds. No gallop, rub or murmur. CHEST: Clear to auscultation. No crepitation or rhonchi. ABDOMEN: Distended, soft, nontender. No guarding or rigidity. No organomegaly. All hernial orifice intact. Bowel sounds normal. NEUROLOGIC: She was seen awake, alert, responding appropriately; however, she is extremely anxious. However, she moves her extremities without difficulty. LABORATORY DATA: On arrival showed white cell count to be 9400, hemoglobin 14.4, hematocrit 42, MCV 91, and platelet count ____. Her chemistry showed that her serum sodium was 140, potassium 3.3, chloride 103, bicarbonate 22, anion gap of 15, BUN ____, creatinine 1, estimated GFR was 55 mL per minute. Her glucose was 161. Her calcium was 10.2, magnesium was 1.7. Total bilirubin, AST, ALT, alkaline phosphatase were normal. Her total protein was 7.7, albumin 3.7. Lipase was 235. Her prothrombin time was 10, INR of 1, aPTT was less than 21. D-dimer was 2.26. Urinalysis showed the urine was essentially unremarkable. Toxic screen was positive for opiates. PLAN: The patient was admitted to do 2 more sets of cardiac enzyme and to consult the cardiology team. BOONE ONOFRE MD DR: JAYSHREE/vero JOB#: [id number] / [id number]
--- NOTE | 2018-05-29 18:17 | DS ---
DATE OF DISCHARGE: HOSPITAL COURSE: The patient is a 68-year-old female patient who came with complaint of chest pain that seems to be fairly atypical. She has had 3 sets of cardiac enzymes that ruled out myocardial infarction. She had an echocardiogram, which showed that she has normal left ventricular systolic function and normal ejection fraction. No evidence of any valvular disease and she was seen by the block making machine operator. PHYSICAL EXAMINATION: GENERAL: When I saw her this afternoon, she looked well and was clearly in no apparent respiratory distress. No pallor, jaundice, cyanosis or thyromegaly. No jugular venous distension. No limb edema. VITAL SIGNS: Her heart rate was 96, blood pressure 111/75, temperature was 98.1, respiratory rate was 18 and oxygen saturation was 93%. The rest of clinical examination is stable. LABORATORY DATA: She has 3 sets of cardiac enzymes that were negative and showed troponin to be less than 0.017. Her fasting lipid profile showed triglycerides were 96, total cholesterol 157, LDL was 84, VLDL was 19, HDL cholesterol was 54 and ratio was 2. TSH was slightly elevated at 3.949. DISCHARGE MEDICATIONS: The patient was discharged home to continue on alprazolam for Xanax 0.25 mg twice a day, Lexapro 10 mg once a day, Protonix 40 mg once a day, aspirin 81 mg once a day, atorvastatin calcium 10 mg at bedtime, folic acid 1 mg once a day, gabapentin 300 mg 3 times a day, and Meloxicam 15 mg once a day. FINAL DISCHARGE DIAGNOSES: Chest pain, atypical; myocardial infarction was ruled out; hypertension; hyperlipidemia; superficial thrombophlebitis; severe anxiety for which we had started her on Xanax and Lexapro. She has severe gastroesophageal reflux disease for which we started her on Protonix. BOONE ONOFRE MD DR: JAYSHREE/vero JOB#: [id number] / [id number]
[2018-05-29] MEDS ORDERED: ATORVASTATIN CALCIUM 10 MG TABLET. PO SCH (21:00)
[2018-05-30] MEDS ORDERED: ASPIRIN ENTERIC COATED 81 MG TABLET.DR. PO SCH (08:00)
--- NOTE | 2018-05-30 11:31 | EKG ---
[address] [address] Test Date: 2018-05-28 Test Time: 18:05:04 Pat Name: SNEHA ARRIAGA Department: Room: 119 A Gender: F Student Accounts Coordinator: : 1950 Requested By: JAIRON BLANCO Order Number: [id number] Reading MD: Hemant Freed Measurements Intervals Mathias Rate: 79 P: 20 PA: 106 QRS: 26 QRSD: 84 T: 64 QT: 392 QTc: 451 Interpretive Statements SINUS RHYTHM Electronically Signed On 06-03-2018 10:31:34 MECHANICAL ARTIST by Hemant Freed
== END 2018-05-29 17:15 | disposition home or self-care (01) ==
LOC: ER 17:57 → 1 SOUTH 21:04 → INTOOBSV 21:04
PROVIDERS: ADMIT Internal Medicine; ATTEND Internal Medicine
DX: R07.89 Other chest pain (principal); E78.5 Hyperlipidemia, unspecified; F41.9 Anxiety disorder, unspecified; E11.42 Type 2 diabetes mellitus with diabetic polyneuropathy; N20.0 Calculus of kidney; I11.0 Hypertensive heart disease with heart failure; E87.6 Hypokalemia; I50.9 Heart failure, unspecified; I25.10 Atherosclerotic heart disease of native coronary artery without angina pectoris; K21.9 Gastro-esophageal reflux disease without esophagitis; I83.90 Asymptomatic varicose veins of unspecified lower extremity; K80.20 Calculus of gallbladder without cholecystitis without obstruction; M19.90 Unspecified osteoarthritis, unspecified site; F32.9 Major depressive disorder, single episode, unspecified; Z82.3 Family history of stroke; Z82.49 Family history of ischemic heart disease and other diseases of the circulatory system; Z83.3 Family history of diabetes mellitus; Z85.828 Personal history of other malignant neoplasm of skin; Z86.72 Personal history of thrombophlebitis; Z87.440 Personal history of urinary (tract) infections; Z79.4 Long term (current) use of insulin
CPT/HCPCS: 36415; 71046; 71275; 80048; 80061; 80076; 80307; 81001; 82550; 83690; 83735; 83880; 84443; 84484; 85025; 85379; 85610; 85730; 93005; 93306; 94640; 96361; 96372; 96374; 96375; 96376; G0378; G0379; J1650; J2060; J2270; J2405; J7120; J7620; Q9967; 99284-25; 99285-25

== ENCOUNTER → 2018-06-17 | Outpatient (CLI) | payer BC, MEDICARE ==
[2018-05-29 16:04] VITALS: BP 106/71
[~2018-06-17] MED LIST changes: +IOHEXOL 240 MG/ML 50ML VIAL. ONE; +IOHEXOL 240 MG/ML 50ML VIAL. PO ONE; +IOHEXOL 300 MG/ML 75 ML VIAL. IV ONE; +IOHEXOL 350 MG/ML 100 ML VIAL. IV ONE
--- NOTE | 2018-06-17 10:09 | RAD ---
CT abdomen pelvis with contrast dated 06/17/2018. COMPARISON: None. TECHNIQUE: Contiguous axial imaging and pelvis performed after the intravenous demonstration of 75 cc Omnipaque 300. One or more of the following individualized dose reduction techniques were utilized for this examination: 1. Automated exposure control 2. Adjustment of the mA and/or kV according to patient size 3. Use of iterative reconstruction technique. FINDINGS: Limited images of lung bases show patchy and linear opacity in the lower lobes, likely atelectasis. Heart size within normal limits. No pleural or pericardial effusion. Liver, spleen, pancreas, adrenal glands and kidneys are unremarkable. No hydronephrosis. There are calcified stones within the gallbladder appears somewhat distended. There is some possible mild wall thickening of the mid aspect of the gallbladder which could be related to a gallbladder contraction. Partially opacified GI tract normal in caliber and contour. No focal bowel wall thickening. No inflammatory stranding in the mesentery. The appendix is normal in caliber. There are a few scattered diverticula within the distal colon. No adenopathy or ascites. Images of the pelvis show mildly distended urinary bladder. Uterus and adnexa are unremarkable. There is a 3 cm right ovarian cyst. No free fluid or lymphadenopathy. 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 Bone windows show no acute findings. Multilevel spondylosis. IMPRESSION: 1. No acute abnormality of abdomen or pelvis. Normal appendix. 2. 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 3. Diverticulosis. 4. Cholelithiasis with gallbladder distention and possible mild wall thickening at the mid gallbladder body. If there is clinical concern for cholecystitis, ultrasound could provide additional information. Electronically signed by: Isaías Maldonado MD (06/17/2018 10:06 AM) [id number]
== END | disposition home or self-care (01) ==
LOC: CT 07:59
PROVIDERS: ATTEND Physician Assistant Medical
DX: K80.20 Calculus of gallbladder without cholecystitis without obstruction (principal); K82.8 Other specified diseases of gallbladder; M47.9 Spondylosis, unspecified; N83.291 Other ovarian cyst, right side; N32.89 Other specified disorders of bladder; Z79.01 Long term (current) use of anticoagulants
CPT/HCPCS: 74177; Q9967

== ENCOUNTER → 2018-08-23 | Outpatient (CLI) | payer BC, MEDICARE ==
[~2018-08-23] MED LIST changes: -IOHEXOL 240 MG/ML 50ML VIAL. ONE; -IOHEXOL 240 MG/ML 50ML VIAL. PO ONE; -IOHEXOL 300 MG/ML 75 ML VIAL. IV ONE; -IOHEXOL 350 MG/ML 100 ML VIAL. IV ONE
--- NOTE | 2018-08-23 13:17 | RAD ---
Examination: Left Lower Extremity Venous Doppler Ultrasound History: Left leg pain Comparison: None Procedure: Block scale, color flow 2D and spectal waveform analysis images are obtained with and without compression in the area of the common femoral vein, superficial femoral vein - femoral vein junction, main femoral vein (superficial femoral vein) and popliteal vein. Veins of the proximal calf are also imaged. Findings: There is normal duplex flow, color flow and compressibility of all visualized vein segments. No evidence of deep venous thrombus is present. Stent identified in the left iliac vein region. Impression: No evidence of DVT in the visualized left lower extremity venous system. Electronically signed by: Dinesh Wells MD (08/23/2018 1:14 PM) [place] [id number]
== END | disposition home or self-care (01) ==
LOC: PMG 10:54
PROVIDERS: ATTEND Physician Assistant Medical
DX: M79.662 Pain in left lower leg (principal)
CPT/HCPCS: 93971

== ENCOUNTER → 2020-12-15 | Outpatient (CLI) | payer BC, MEDICARE ==
--- NOTE | 2020-12-15 09:56 | RAD ---
XR HAND_RIGHT 2 VIEWS History: Right hand pain, first digit pain. Comparison: None. Technique: 2 views of the right hand Findings: Mildly decreased osseous mineralization. No fracture or dislocation. Irregular broadening and margina l osteophyte formation of the interphalangeal joint of the thumb and distal interphalangeal joints of the index and middle fingers may represent degenerative changes, possibly superimposed on old injury or developmental variant. No aggressive osseous erosive process. Mild degenerative changes of the pr oximal interphalangeal joints. Widening of the scapholunate interval. Mild degenerative changes of th e carpus. Impression: 1. No acute osseous abnormality in the right hand. 2. Degenerative changes of the thumb interphalangeal joint and distal interphalangeal joints of the index and middle finger which may be superimposed on ultrasonic changes versus developmental variants . 3. Widening of the scapholunate interval consistent with scapholunate ligament tear. Electronically signed by: Juliocesar Good MD (12/15/2020 9:54 AM) [facility]
== END ==
LOC: RAD 08:49
PROVIDERS: ATTEND Physician Assistant Medical
DX: S69.91XA Unspecified injury of right wrist, hand and finger(s), initial encounter (principal); M19.041 Primary osteoarthritis, right hand; M18.11 Unilateral primary osteoarthritis of first carpometacarpal joint, right hand; X58.XXXA Exposure to other specified factors, initial encounter; Y92.89 Other specified places as the place of occurrence of the external cause; Y93.89 Activity, other specified; Y99.8 Other external cause status
CPT/HCPCS: 73120